=== PATIENT | female | born 2000 | race Caucasian/White ===

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

== ENCOUNTER 2023-01-25 19:36 | Inpatient (IN) | payer BC, MEDICAID ==
[2023-01-25] MEDS ORDERED: Water For Irrigation,Sterile 1,000 ML Container IRR PRN (20:23)
[2023-01-25] MEDS ORDERED: Lidocaine 1% 50 ML MDV INJECT PRN (20:23)
[2023-01-25] MEDS ORDERED: Misoprostol 200 MCG Tab PO PRN (20:23)
[2023-01-25] MEDS ORDERED: Ondansetron 4 MG/2 ML SDV IVPUSH PRN (20:23)
[2023-01-25] MEDS ORDERED: Sodium Chloride 0.9% 2.5 ML Syringe FLUSH PRN (20:23)
[2023-01-25] MEDS ORDERED: Methylergonovine 0.2 MG/1 ML Amp IM PRN (20:23)
[2023-01-25] MEDS ORDERED: Tranexamic Acid 1,000 MG in Sodium Chloride 0.9% 100 ML IV PRN (20:23)
[2023-01-25] MEDS ORDERED: Carboprost Tromethamine 250 MCG/1 ML Amp IM PRN (20:23)
[2023-01-25] MEDS ORDERED: Sodium Chloride 0.9% 20 ML SDV IV PRN (20:23)
[2023-01-25] MEDS ORDERED: Sodium Chloride 0.9% 10 ML Syringe FLUSH PRN (20:23)
[2023-01-25] MEDS ORDERED: Terbutaline 1 MG/ML SDV SUBCUT PRN (20:23)
[2023-01-25] MEDS ORDERED: Oxytocin/0.9 % Sodium Chloride 30 UNIT/500 ML BAG IV SCH ×2 (20:30)
[2023-01-25] MEDS ORDERED: Misoprostol 25 MCG (1/4 of 100 MCG) Tab VAG PRN (21:00)
[2023-01-26] MEDS: Lactated Ringers 1,000 ML IV SCH ×4 (00:29→14:34)
[2023-01-26] MEDS ORDERED: Misoprostol 25 MCG (1/4 of 100 MCG) Tab VAG PRN (01:00)
[2023-01-26] MEDS: Butorphanol 1 MG/ML SDV IVPUSH PRN ×2 (02:48→04:44)
[2023-01-26] MEDS ORDERED: Ropivacaine/PF 400 MG/200 ML PCA ONE (07:03)
[2023-01-26] MEDS ORDERED: Lidocaine 2% with EPINEPHrine 1:200,000 20 ML SDV ONE (07:03)
[2023-01-26] MEDS ORDERED: Ondansetron 4 MG/2 ML SDV ONE (07:10)
[2023-01-26] MEDS ORDERED: Dexmedetomidine 200 MCG/2 ML SDV ONE (07:11)
[2023-01-26] MEDS ORDERED: ePHEDrine 50 MG/ML SDV ONE (07:24)
[2023-01-26] MEDS ORDERED: Phenylephrine HCl In 0.9% NaCl 1 MG/10 ML Vial IVPUSH SCH (07:45)
[2023-01-26] MEDS ORDERED: Phenylephrine HCl In 0.9% NaCl 1 MG/10 ML Vial IVPUSH PRN (07:45)
[2023-01-26] MEDS ORDERED: Ropivacaine HCl/PF 400 MG in Premix Bag 1 BAG EPIDUR SCH (07:45)
[2023-01-26] MEDS ORDERED: ePHEDrine 50 MG/ML SDV IVPUSH PRN ×2 (07:45)
[2023-01-26] MEDS: Acetaminophen 500 MG Tab PO PRN (12:33)
[2023-01-26] MEDS ORDERED: Acetaminophen 500 MG Tab PO PRN (16:42)
[2023-01-26] MEDS ORDERED: Lanolin 100% Cream 7 GM Tube TOP PRN (16:42)
[2023-01-26] MEDS ORDERED: Bisacodyl 10 MG Supp RECTAL PRN (16:42)
[2023-01-26] MEDS ORDERED: Benzocaine/Menthol 20%-0.5% Spray 78 GM Cannister TOP PRN (16:42)
[2023-01-26] MEDS ORDERED: oxyCODONE 5 MG Tab PO PRN (16:42)
[2023-01-26] MEDS ORDERED: Ibuprofen 400 MG Tab PO PRN (16:42)
[2023-01-26] MEDS: Witch Hazel Medicated Pads 40/Jar TOP PRN (17:51)
[2023-01-26] MEDS: Ibuprofen 800 MG Tab PO PRN (17:51)
[2023-01-26] MEDS: Docusate Sodium 100 MG Cap PO PRN (21:03)
[2023-01-27] MEDS: Ibuprofen 800 MG Tab PO PRN ×4 (03:04→22:07)
[2023-01-27] MEDS: Acetaminophen 500 MG Tab PO PRN ×3 (03:39→17:21)
[2023-01-27] MEDS ORDERED: Measles, Mumps & Rubella Vaccine 0.5 ML SDV SUBCUT ONE (08:14)
[2023-01-27] MEDS: Docusate Sodium 100 MG Cap PO PRN ×2 (09:11→22:08)
[2023-01-27] MEDS: Witch Hazel Medicated Pads 40/Jar TOP PRN (09:29)
[2023-01-28] MEDS: Ibuprofen 800 MG Tab PO PRN (08:17)
[2023-01-28 08:39] VITALS: BP 128/84; PULSE 65
== END 2023-01-28 13:29 | disposition home or self-care (01) | DRG 560 ==
LOC: MW.OBCHECK 19:36 → MW.OB 19:37 → MW.OBCHECK 20:22 → MW.OB 20:23 → OBSVTOIN 01-26 16:07 → MW.OB 01-26 20:00
PROVIDERS: ADMIT Obstetrics & Gynecology; ATTEND Obstetrics & Gynecology
PROC: 10E0XZZ Delivery of Products of Conception, External Approach (ICD-10-PCS; principal; 2023-01-26)
PROC: 0HQ9XZZ Repair Perineum Skin, External Approach (ICD-10-PCS; 2023-01-26)
PROC: 10907ZC Drainage of Amniotic Fluid, Therapeutic from Products of Conception, Via Natural or Artificial Opening (ICD-10-PCS; 2023-01-26)
PROC: 3E0R3BZ Introduction of Anesthetic Agent into Spinal Canal, Percutaneous Approach (ICD-10-PCS; 2023-01-26)
PROC: 00HU33Z Insertion of Infusion Device into Spinal Canal, Percutaneous Approach (ICD-10-PCS; 2023-01-26)
PROC: 3E0P7VZ Introduction of Hormone into Female Reproductive, Via Natural or Artificial Opening (ICD-10-PCS; 2023-01-26)
PROC: 3E033VJ Introduction of Other Hormone into Peripheral Vein, Percutaneous Approach (ICD-10-PCS; 2023-01-26)
DX: O48.0 Post-term pregnancy (principal); O70.0 First degree perineal laceration during delivery; Z37.0 Single live birth; Z3A.40 40 weeks gestation of pregnancy; Z87.891 Personal history of nicotine dependence
CPT/HCPCS: 36415; 51702; 59025; 59409; 82803; 85014; 85018; 85027; 85460; 86592; 86850; 86900; 86901; A9270-GY; J0595; J2405; J2590; J2790; J2795; J3490; J7120; U0002

== ENCOUNTER 2023-09-13 15:51 | Emergency (ER) | payer BC, MEDICAID ==
[2023-09-13] MEDS ORDERED: Sodium Chloride 0.9% 1,000 ML IV ONE (16:12)
[2023-09-13] MEDS ORDERED: Alum Hydro/Mag Hydro/Simeth XS 15 ML, Lidocaine 2% 5 ML PO ONE ×2 (16:13)
[2023-09-13] MEDS ORDERED: Ondansetron 4 MG/2 ML SDV IVPUSH ONE (16:13)
[2023-09-13 16:21] LABS: BASOPHILS ABSOLUTE AUTO 0.05 K/uL (0.00-0.20); BASOPHILS PERCENT AUTO 0.8 % (0.0-1.0); EOSINOPHILS ABSOLUTE AUTO 0.09 K/uL (0.00-0.45); EOSINOPHILS PERCENT AUTO 1.4 % (0.0-6.0); HEMATOCRIT 36.5 % (37.0-47.0); HEMOGLOBIN 12.4 g/dL (12.0-16.0); IMMATURE GRAN ABSOLUTE AUTO 0.01 K/uL (0.00-0.05); IMMATURE GRAN PERCENT AUTO 0.2 % (0.0-0.4); LYMPHOCYTES ABSOLUTE AUTO 2.81 K/uL (1.00-4.80); LYMPHOCYTES PERCENT AUTO 42.4 % (24.0-44.0); MEAN CORPUSCULAR HEMOGLOBIN 29.7 pg (28.0-32.0); MEAN CORPUSCULAR VOLUME 87.5 fL (83.0-99.0); MEAN PLATELET VOLUME 9.8 fL (9.4-12.3); MONOCYTES ABSOLUTE AUTO 0.56 K/uL (0.00-0.80); MONOCYTES PERCENT AUTO 8.5 % (0.0-8.0); NEUTROPHILS PERCENT AUTO 46.7 % (41.0-71.0); PLATELET COUNT,PLT 295 K/uL (150-400); RED BLOOD CELL COUNT 4.17 M/uL (4.10-5.30); WHITE BLOOD CELL COUNT,WBC 6.62 K/uL (3.9-11.3)
[2023-09-13 16:55] LABS: A/G RATIO 1.1 (0.9-1.6); ALANINE AMINOTRANSFERASE,ALT 23 IU/L (14-63); ALBUMIN 4.1 g/dL (3.4-5.0); ALKALINE PHOSPHATASE 78 U/L (46-116); ASPARTATE AMNIOTRANSFERASE,AST 14 IU/L (15-37); BILIRUBIN TOTAL 0.3 mg/dL (0.2-1.0); BLOOD UREA NITROGEN,BUN 8 mg/dL (7.0-18.0); CALCIUM 9.6 mg/dL (8.5-10.1); CARBON DIOXIDE,CO2 27.6 mmol/L (21.0-32.0); CHLORIDE,CL 105 mmol/L (98-107); CREATININE 0.8 mg/dL (0.6-1.0); EST CRCL DRUG DOSING (CG) 92.02 mL/min; GLUCOSE RANDOM 90 mg/dL (74-106); POTASSIUM,K 4.1 mmol/L (3.5-5.1); PROTEIN TOTAL,TP 7.7 g/dL (6.4-8.2); SODIUM,NA 143 mmol/L (136-145)
[2023-09-13 16:59] LABS: APPEARANCE,URINE CLEAR; BILIRUBIN,URINE NEGATIVE (NEGATIVE); COLOR,URINE YELLOW; GLUCOSE,URINE NEGATIVE (NEGATIVE); KETONES,URINE NEGATIVE (NEGATIVE); LEUKOCYTE ESTERASE,URINE NEGATIVE (NEGATIVE); NITRITE,URINE NEGATIVE (NEGATIVE); OCCULT BLOOD,URINE NEGATIVE (NEGATIVE); PROTEIN,URINE NEGATIVE (NEGATIVE); UROBILINOGEN,URINE 0.2 EU/dL (<2.0)
[2023-09-13 17:02] LABS: ESTIMATED GFR 107 mL/min (>60)
[2023-09-13] MEDS ORDERED: Ketorolac 30 MG/ML SDV IVPUSH ONE (17:04)
[2023-09-13 17:22] LABS: CORONAVIRUS COVID-19 NAA NEGATIVE (NEGATIVE); INFLUENZA A NAA NEGATIVE (NEGATIVE); INFLUENZA B NAA NEGATIVE (NEGATIVE)
[2023-09-13 18:05] VITALS: BP 106/58; PULSE 60
== END 2023-09-13 18:04 | disposition home or self-care (01) ==
LOC: MW.ED 15:51
DX: R07.2 Precordial pain (principal); Z91.040 Latex allergy status; Z20.822 Contact with and (suspected) exposure to COVID-19
CPT/HCPCS: 0240U; 36415; 71045; 80053; 81003; 81025; 84484; 85025; 93005; 96361; 96374; 96375; 99285; A9270; J1885; J2405; J7030; 93010; 99284

== ENCOUNTER 2023-11-11 06:38 | Day surgery (SDC) | payer BC, OTHER ==
[~2023-11-11 06:38] MED LIST: Lactated Ringers 1,000 ML IV SCH; Sodium Chloride 0.9% 10 ML Syringe FLUSH PRN; Sodium Chloride 0.9% 2.5 ML Syringe FLUSH PRN; Sodium Chloride 0.9% 20 ML SDV IV PRN; ceFAZolin 2 GM in Sodium Chloride 0.9% 50 ML IV ONE
[2023-11-11] MEDS ORDERED: Ropivacaine 0.5% 5 MG/ML 30 ML SDV ONE (07:32)
[2023-11-11] MEDS ORDERED: Famotidine 20 MG/2 ML SDV ONE (07:32)
[2023-11-11] MEDS ORDERED: Propofol 200 MG/20 ML SDV ONE (07:38)
[2023-11-11] MEDS ORDERED: dexmedeTOMIDine HCl 200 MCG/2 ML SDV ONE (07:39)
[2023-11-11] MEDS ORDERED: Water For Injection, Sterile 20 ML ONE (07:39)
[2023-11-11] MEDS ORDERED: Bupivacaine 0.5% 30 ML SDV ONE (07:42)
[2023-11-11] MEDS ORDERED: propofoL 50 ML ONE (07:42)
[2023-11-11] MEDS ORDERED: fentaNYL 250 MCG/5 ML SDV ONE (07:46)
[2023-11-11] MEDS ORDERED: HYDROmorphone 1 MG/ML Syringe IVPUSH PRN (08:01)
[2023-11-11] MEDS ORDERED: Albuterol 0.083% 2.5 MG/3 ML Neb Soln NEB PRN (08:01)
[2023-11-11] MEDS ORDERED: Naloxone 0.4 MG/ML SDV IVPUSH PRN (08:01)
[2023-11-11] MEDS ORDERED: Metoclopramide 10 MG/2 ML SDV IVPUSH PRN (08:01)
[2023-11-11] MEDS ORDERED: Ondansetron 4 MG/2 ML SDV IVPUSH PRN (08:01)
[2023-11-11] MEDS ORDERED: fentaNYL 50 MCG/ML SDV IVPUSH PRN (08:01)
[2023-11-11] MEDS ORDERED: Morphine 2 MG/ML SYRINGE IVPUSH PRN (08:01)
[2023-11-11] MEDS ORDERED: droPERidol 5 MG/2 ML SDV IVPUSH PRN (08:01)
[2023-11-11] MEDS ORDERED: Ondansetron 4 MG/2 ML SDV ONE (08:59)
[2023-11-11] MEDS ORDERED: Rocuronium Bromide 50 MG/5 ML Syringe ONE (08:59)
[2023-11-11] MEDS ORDERED: Ketorolac 30 MG/ML SDV ONE (08:59)
[2023-11-11] MEDS ORDERED: Dexamethasone 4 MG/ML 5 ML MDV ONE (08:59)
[2023-11-11] MEDS ORDERED: Sugammadex Sodium 200 MG/2 ML VIAL ONE (08:59)
[2023-11-11] MEDS ORDERED: Acetaminophen/oxyCODONE 325-5 MG Tab PO ONE (10:46)
[2023-11-11 12:06] VITALS: BP 86/45; PULSE 49
== END 2023-11-11 11:45 | disposition home or self-care (01) ==
LOC: MW.SDS 06:38
PROVIDERS: ATTEND Surgery
DX: K81.1 Chronic cholecystitis (principal); K82.8 Other specified diseases of gallbladder; F41.9 Anxiety disorder, unspecified; K21.9 Gastro-esophageal reflux disease without esophagitis; Z79.899 Other long term (current) drug therapy; Z91.040 Latex allergy status
CPT/HCPCS: 81025; A9270-GY; J0131; J0665; J1100; J1885; J2405; J2704; J2795; J3010; J3490; J7120

== ENCOUNTER 2024-03-19 12:39 | Emergency (ER) | payer OTHER, BC ==
[2024-03-19] MEDS: Ibuprofen 800 MG Tab PO ONE (13:18)
[2024-03-19] MEDS: Acetaminophen 500 MG Tab PO ONE (13:18)
[2024-03-19 13:45] LABS: CORONAVIRUS COVID-19 NAA NEGATIVE (NEGATIVE); INFLUENZA A NAA NEGATIVE (NEGATIVE); INFLUENZA B NAA NEGATIVE (NEGATIVE); RESPIRATORY SYNCYTIAL VIR NAA NEGATIVE (NEGATIVE)
[2024-03-19 14:06] VITALS: BP 99/61; PULSE 96
== END 2024-03-19 14:33 | disposition home or self-care (01) ==
LOC: MW.ED 12:39
DX: B34.9 Viral infection, unspecified (principal); Z75.8 Other problems related to medical facilities and other health care; Z91.040 Latex allergy status
CPT/HCPCS: 0241U; 87651; 99283; A9270

== ENCOUNTER 2024-08-23 11:50 | Day surgery (SDC) | payer BC, OTHER ==
[2024-08-23 13:31] LABS: BASOPHILS ABSOLUTE AUTO 0.06 K/uL (0.00-0.20); BASOPHILS PERCENT AUTO 0.5 % (0.0-1.0); EOSINOPHILS ABSOLUTE AUTO 0.07 K/uL (0.00-0.45); EOSINOPHILS PERCENT AUTO 0.6 % (0.0-6.0); HEMATOCRIT 41.5 % (37.0-47.0); HEMOGLOBIN 13.6 g/dL (12.0-16.0); IMMATURE GRAN ABSOLUTE AUTO 0.03 K/uL (0.00-0.05); IMMATURE GRAN PERCENT AUTO 0.3 % (0.0-0.4); LYMPHOCYTES ABSOLUTE AUTO 2.75 K/uL (1.00-4.80); LYMPHOCYTES PERCENT AUTO 23.8 % (24.0-44.0); MEAN CORPUSCULAR HGB CONC 32.8 g/dL (32.0-36.0); MEAN CORPUSCULAR VOLUME 91.4 fL (83.0-99.0); MEAN PLATELET VOLUME 9.5 fL (9.4-12.3); MONOCYTES ABSOLUTE AUTO 0.81 K/uL (0.00-0.80); NEUTROPHILS ABSOLUTE AUTO 7.85 K/uL (1.80-7.70); NEUTROPHILS PERCENT AUTO 67.8 % (41.0-71.0); PLATELET COUNT,PLT 294 K/uL (150-400); RED BLOOD CELL COUNT 4.54 M/uL (4.10-5.30); WHITE BLOOD CELL COUNT,WBC 11.57 K/uL (3.9-11.3)
[2024-08-23 14:00] LABS: APPEARANCE,URINE CLEAR; BILIRUBIN,URINE NEGATIVE (NEGATIVE); COLOR,URINE YELLOW; GLUCOSE,URINE NEGATIVE (NEGATIVE); KETONES,URINE 40 mg/dL (NEGATIVE); LEUKOCYTE ESTERASE,URINE NEGATIVE (NEGATIVE); NITRITE,URINE POSITIVE (NEGATIVE); OCCULT BLOOD,URINE NEGATIVE (NEGATIVE); PROTEIN,URINE NEGATIVE (NEGATIVE); UROBILINOGEN,URINE 0.2 EU/dL (<2.0)
[2024-08-23 14:17] LABS: BACTERIA,URINE FEW (NEGATIVE); EPITHELIAL CELLS,URINE FEW (NONE-FEW); MUCUS,URINE LIGHT (NONE-MOD); RBC,URINE NONE SEEN (0-2/HPF); WBC,URINE 0-1 (0-5/HPF)
[2024-08-23 14:24] LABS: A/G RATIO 1.1 (0.9-1.6); ALBUMIN 4.2 g/dL (3.4-5.0); BILIRUBIN TOTAL 0.5 mg/dL (0.2-1.0); CALCIUM 10.2 mg/dL (8.5-10.1); CARBON DIOXIDE,CO2 30.2 mmol/L (21.0-32.0); CREATININE 0.7 mg/dL (0.6-1.0); EST CRCL DRUG DOSING (CG) 104.28 mL/min; POTASSIUM,K 4.3 mmol/L (3.5-5.1); PROTEIN TOTAL,TP 8.1 g/dL (6.4-8.2)
[2024-08-23] MEDS: Sodium Chloride 0.9% 1,000 ML IV STA (14:32)
[2024-08-23] MEDS: Morphine 4 MG/ML Syringe IVPUSH ONE (14:33)
[2024-08-23] MEDS: Ondansetron 4 MG/2 ML SDV IVPUSH ONE (14:33)
[2024-08-23] MEDS: Iopamidol 755 MG/ML 500 ML Multipack Bottle IVPUSH STA ×2 (14:52→14:58)
[2024-08-23] MEDS: Morphine 2 MG/ML SYRINGE IVPUSH ONE (15:55)
[2024-08-23] MEDS: Ertapenem 1 GM in Sodium Chloride 0.9% 50 ML IV ONE (17:30)
[2024-08-23] MEDS ORDERED: Bupivacaine 0.5% 30 ML SDV ONE (19:25)
[2024-08-23] MEDS ORDERED: propofoL 50 ML ONE ×2 (20:12→20:49)
[2024-08-23] MEDS ORDERED: fentaNYL 250 MCG/5 ML SDV ONE (20:12)
[2024-08-23] MEDS ORDERED: Famotidine 20 MG/2 ML SDV ONE (20:13)
[2024-08-23] MEDS ORDERED: Ropivacaine 0.5% 5 MG/ML 30 ML SDV ONE (20:13)
[2024-08-23] MEDS ORDERED: Lidocaine 2% 11 ML Jelly Filled Syringe ONE (20:14)
[2024-08-23] MEDS ORDERED: Ondansetron 4 MG/2 ML SDV ONE (20:29)
[2024-08-23] MEDS ORDERED: Dexamethasone 4 MG/ML 5 ML MDV ONE (20:29)
[2024-08-23] MEDS ORDERED: Ketorolac 30 MG/ML SDV ONE (20:29)
[2024-08-23] MEDS ORDERED: Ketamine HCL/NACL, ISO-OSM 50 MG/5 ML Syringe ONE (20:32)
[2024-08-23] MEDS ORDERED: dexmedeTOMIDine HCl 200 MCG/2 ML SDV ONE (20:42)
[2024-08-23] MEDS ORDERED: fentaNYL 100 MCG/2 ML SDV ONE (20:55)
[2024-08-23] MEDS ORDERED: Sugammadex Sodium 200 MG/2 ML VIAL IV ONE (21:33)
[2024-08-23] MEDS ORDERED: HYDROmorphone 2 MG/ML Syringe IVPUSH PRN (21:37)
[2024-08-23] MEDS ORDERED: Ondansetron 4 MG/2 ML SDV IVPUSH PRN (21:37)
[2024-08-23] MEDS ORDERED: Acetaminophen/HYDROcodone 325-5 MG Tab PO PRN (21:37)
[2024-08-23] MEDS ORDERED: Acetaminophen 325 MG Tab PO PRN (21:37)
[2024-08-23] MEDS ORDERED: Naloxone 0.4 MG/ML SDV IVPUSH PRN (21:37)
[2024-08-24] MEDS: Sodium Chloride 0.9% 1,000 ML IV SCH (00:29)
[2024-08-24] MEDS: Calcium Carbonate 500 MG Tab.Chew PO PRN (08:17)
[2024-08-24 09:47] LABS: BASOPHILS ABSOLUTE AUTO 0.01 K/uL (0.00-0.20); BASOPHILS PERCENT AUTO 0.1 % (0.0-1.0); HEMATOCRIT 35.5 % (37.0-47.0); HEMOGLOBIN 11.5 g/dL (12.0-16.0); IMMATURE GRAN ABSOLUTE AUTO 0.03 K/uL (0.00-0.05); IMMATURE GRAN PERCENT AUTO 0.4 % (0.0-0.4); LYMPHOCYTES ABSOLUTE AUTO 1.25 K/uL (1.00-4.80); LYMPHOCYTES PERCENT AUTO 15.2 % (24.0-44.0); MEAN CORPUSCULAR HEMOGLOBIN 30.2 pg (28.0-32.0); MEAN CORPUSCULAR HGB CONC 32.4 g/dL (32.0-36.0); MEAN CORPUSCULAR VOLUME 93.2 fL (83.0-99.0); MEAN PLATELET VOLUME 9.7 fL (9.4-12.3); MONOCYTES ABSOLUTE AUTO 0.36 K/uL (0.00-0.80); MONOCYTES PERCENT AUTO 4.4 % (0.0-8.0); NEUTROPHILS ABSOLUTE AUTO 6.56 K/uL (1.80-7.70); NEUTROPHILS PERCENT AUTO 79.9 % (41.0-71.0); PLATELET COUNT,PLT 244 K/uL (150-400); RED BLOOD CELL COUNT 3.81 M/uL (4.10-5.30); WHITE BLOOD CELL COUNT,WBC 8.21 K/uL (3.9-11.3)
[2024-08-24] MEDS: Alum Hydrox/Mag Hydrox/Simeth 15 ML, Lidocaine 2% 5 ML PO ONE (09:49)
[2024-08-24] MEDS: Iopamidol 755 MG/ML 500 ML Multipack Bottle IVPUSH STA (10:11)
[2024-08-24 10:45] LABS: A/G RATIO 1.1 (0.9-1.6); ALBUMIN 3.3 g/dL (3.4-5.0); BILIRUBIN TOTAL 0.7 mg/dL (0.2-1.0); CALCIUM 8.8 mg/dL (8.5-10.1); CARBON DIOXIDE,CO2 21.4 mmol/L (21.0-32.0); CREATININE 0.8 mg/dL (0.6-1.0); EST CRCL DRUG DOSING (CG) 91.24 mL/min; POTASSIUM,K 4.1 mmol/L (3.5-5.1); PROTEIN TOTAL,TP 6.4 g/dL (6.4-8.2)
[2024-08-24 11:39] VITALS: BP 106/54; PULSE 97
== END 2024-08-24 11:47 | disposition home or self-care (01) ==
LOC: MW.ED 11:50 → MW.SDS 17:14 → MW.MS 17:14 → MW.SDS 08-24 11:47
PROVIDERS: ATTEND Surgery
DX: K35.80 Unspecified acute appendicitis (principal); K21.9 Gastro-esophageal reflux disease without esophagitis; F31.9 Bipolar disorder, unspecified
CPT/HCPCS: 36415; 44970; 71045; 71275; 74177; 80053; 81001; 81025; 83690; 84484; 85025; 87086; 93005; 96361; 96365; 96375; 96376; 99285; A9270; J0131; J0665; J1100; J1335; J1885; J2270; J2405; J2704; J2795; J3010; J3490; J7030; Q9967; 00840; 64488

== ENCOUNTER 2025-06-30 16:36 | Emergency (ER) | payer OTHER ==
[2025-06-30 17:11] LABS: GLUCOSE,URINE NEGATIVE (NEGATIVE); OCCULT BLOOD,URINE NEGATIVE (NEGATIVE)
[2025-06-30 17:14] LABS: APPEARANCE,URINE HAZY
[2025-06-30 17:20] LABS: EPITHELIAL CELLS,URINE MODERATE (NONE-FEW)
[2025-06-30] MEDS: Ketorolac 30 MG/ML SDV IVPUSH ONE (17:38)
[2025-06-30] MEDS: Ondansetron 4 MG/2 ML SDV IVPUSH ONE (17:38)
[2025-06-30 17:45] LABS: BASOPHILS ABSOLUTE AUTO 0.05 K/uL (0.00-0.20); BASOPHILS PERCENT AUTO 0.6 % (0.0-1.0); EOSINOPHILS ABSOLUTE AUTO 0.05 K/uL (0.00-0.45); EOSINOPHILS PERCENT AUTO 0.6 % (0.0-6.0); IMMATURE GRAN ABSOLUTE AUTO 0.01 K/uL (0.00-0.05); IMMATURE GRAN PERCENT AUTO 0.1 % (0.0-0.4); LYMPHOCYTES ABSOLUTE AUTO 2.69 K/uL (1.00-4.80); LYMPHOCYTES PERCENT AUTO 32.9 % (24.0-44.0); MEAN PLATELET VOLUME 9.7 fL (9.4-12.3); MONOCYTES ABSOLUTE AUTO 0.58 K/uL (0.00-0.80); MONOCYTES PERCENT AUTO 7.1 % (0.0-8.0); NEUTROPHILS ABSOLUTE AUTO 4.79 K/uL (1.80-7.70); NEUTROPHILS PERCENT AUTO 58.7 % (41.0-71.0); NRBC ABSOLUTE 0.00 K/uL (0.00-0.02); NRBC PERCENT 0.0 /100WBC (0.0-0.2); PLATELET COUNT,PLT 269 K/uL (150-400); RED BLOOD CELL COUNT 4.19 M/uL (4.10-5.30); WHITE BLOOD CELL COUNT,WBC 8.17 K/uL (3.9-11.3)
[2025-06-30 18:10] LABS: A/G RATIO 1.1 (0.9-1.6); ALANINE AMINOTRANSFERASE,ALT 21 IU/L (14-63); ASPARTATE AMNIOTRANSFERASE,AST 18 IU/L (15-37); BILIRUBIN TOTAL 0.5 mg/dL (0.2-1.0); BLOOD UREA NITROGEN,BUN 9 mg/dL (7.0-18.0); CARBON DIOXIDE,CO2 25.1 mmol/L (21.0-32.0); CHLORIDE,CL 103 mmol/L (98-107); CREATININE 0.8 mg/dL (0.6-1.0); ESTIMATED GFR 106 mL/min (>60); GLUCOSE RANDOM 117 mg/dL (74-106); POTASSIUM,K 3.5 mmol/L (3.5-5.1); PROTEIN TOTAL,TP 7.6 g/dL (6.4-8.2); SODIUM,NA 139 mmol/L (136-145)
[2025-06-30 21:18] VITALS: BP 104/58; PULSE 80
[2025-06-30] MEDS: Nitrofurantoin Monohydrate/Macrocrystalline 100 MG Cap PO ONE (21:19)
== END 2025-06-30 21:25 | disposition home or self-care (01) ==
LOC: MW.ED 16:36
DX: N30.00 Acute cystitis without hematuria (principal); Z75.3 Unavailability and inaccessibility of health-care facilities; Z79.899 Other long term (current) drug therapy; Z91.040 Latex allergy status
CPT/HCPCS: 36415; 76830; 76857; 80053; 81001; 81025; 83690; 83735; 85025; 96361; 96374; 96375; 99284; A9270; J1885; J2405; J7030; 99283